=== PATIENT | female | born 1995 | race Caucasian/White ===

== ENCOUNTER 2017-03-28 21:23 | Emergency (ER) | payer OTHER | END 2017-03-28 22:03 | disposition left against medical advice (07) | LOC: ED 21:23 | DX: Z53.21 Procedure and treatment not carried out due to patient leaving prior to being seen by health care provider (principal) ==

== ENCOUNTER 2017-06-10 08:45 | Emergency (ER) | payer OTHER ==
[2017-06-10 09:25] LABS: BASOPHIL % 0.7 % (0-2); PLATELET COUNT 229 x10^3mcL (130-400); RED CELL DISTRIBUTION WIDTH 14.5 % (11.5-14.5)
[2017-06-10 09:40] LABS: CALCIUM 8.9 mg/dL (8.5-10.1); CARBON DIOXIDE 29.5 mmol/L (21-32); CHLORIDE SERUM 98 mmol/L (98-107); CREATININE SERUM 0.7 mg/dL (0.6-1.0); GFR1 > 60 mL/min; GLUCOSE SERUM 95 mg/dL (74-106); POTASSIUM SERUM 4.5 mmol/L (3.5-5.1); SODIUM SERUM 135 mmol/L (136-145)
[2017-06-10 09:45] LABS: ALBUMIN 4.5 g/dL (3.4-5.0); ALKALINE PHOSPHATASE 57 U/L (46-116); ALT/SGPT 23 U/L (14-59); AST/SGOT 18 U/L (15-37); BILIRUBIN TOTAL 0.3 mg/dL (0.20-1.00)
[2017-06-10 09:48] LABS: TOTAL PROTEIN, SERUM 8.4 g/dL (6.4-8.2)
[2017-06-10 11:09] VITALS: BP 101/63
== END 2017-06-10 11:09 | disposition home or self-care (01) ==
LOC: ED 08:45
PROVIDERS: Emergency Medicine
DX: F10.129 Alcohol abuse with intoxication, unspecified (principal)
CPT/HCPCS: G0480; J3411; J3475; J3490; J7030

== ENCOUNTER 2019-04-30 21:55 | Emergency (ER) | payer OTHER ==
[~2019-04-30] VITALS: Ht 160 cm; Wt 54.4 kg
[2019-04-30 22:13] VITALS: Ht 160 cm; Wt 54.4 kg
[2019-04-30 22:30] LABS: CALCIUM 9.6 mg/dL (8.5-10.1); CARBON DIOXIDE 18.1 mmol/L (21-32); CHLORIDE SERUM 103 mmol/L (98-107); CREATININE SERUM 0.9 mg/dL (0.6-1.0); GFR1 > 60 mL/min; GLUCOSE SERUM 102 mg/dL (74-106); POTASSIUM SERUM 3.8 mmol/L (3.5-5.1); SODIUM SERUM 143 mmol/L (136-145)
[2019-04-30 22:36] LABS: ALBUMIN 4.8 g/dL (3.4-5.0); ALKALINE PHOSPHATASE 69 U/L (46-116); ALT/SGPT 27 U/L (14-59); AST/SGOT 20 U/L (15-37); BASOPHIL % 0.3 % (0-2); BILIRUBIN TOTAL 0.33 mg/dL (0.20-1.00); PLATELET COUNT 307 x10^3mcL (130-400); RED CELL DISTRIBUTION WIDTH 14.3 % (11.5-14.5)
[2019-04-30 22:38] LABS: TOTAL PROTEIN, SERUM 8.6 g/dL (6.4-8.2)
[2019-04-30 23:24] LABS: UA SPECIFIC GRAVITY >=1.030 (1.005-1.035); microscopic required? YES; urine erythrocyte TRACE (NEGATIVE)
[2019-04-30 23:38] LABS: AMPHETAMINE QUAL UR NONE DETECTED (See below)
[2019-05-01 08:08] VITALS: BP 113/61
== END 2019-05-01 09:09 | disposition home or self-care (01) ==
LOC: ED 21:55
PROVIDERS: Specialist
DX: R45.851 Suicidal ideations (principal); F10.129 Alcohol abuse with intoxication, unspecified; F32.9 Major depressive disorder, single episode, unspecified; E23.2 Diabetes insipidus
CPT/HCPCS: G0480; J0696; J1630; J2405; J7030; J7060

== ENCOUNTER 2019-05-08 09:10 | Emergency (ER) | payer OTHER ==
[~2019-05-08] VITALS: Ht 162.6 cm; Wt 62.6 kg
[2019-05-08 09:21] VITALS: Ht 162.6 cm; Wt 62.6 kg
[2019-05-08 10:04] VITALS: BP 114/74
== END 2019-05-08 10:04 | disposition home or self-care (01) ==
LOC: ED 09:10
DX: R00.2 Palpitations (principal); F10.239 Alcohol dependence with withdrawal, unspecified; E23.2 Diabetes insipidus; Z98.890 Other specified postprocedural states

== ENCOUNTER 2019-05-09 19:32 | Emergency (ER) | payer OTHER ==
[~2019-05-09] VITALS: Ht 162.6 cm; Wt 58.5 kg
[2019-05-09 19:39] VITALS: Ht 162.6 cm; Wt 58.5 kg
[2019-05-09 20:38] LABS: BASOPHIL % 0.4 % (0-2); PLATELET COUNT 237 x10^3mcL (130-400)
[2019-05-09 20:39] LABS: RED CELL DISTRIBUTION WIDTH 14.7 % (11.5-14.5)
[2019-05-09 20:42] LABS: CALCIUM 8.6 mg/dL (8.5-10.1); CARBON DIOXIDE 22.9 mmol/L (21-32); CHLORIDE SERUM 110 mmol/L (98-107); CREATININE SERUM 0.9 mg/dL (0.6-1.0); GFR1 > 60 mL/min; GLUCOSE SERUM 102 mg/dL (74-106); POTASSIUM SERUM 3.8 mmol/L (3.5-5.1); SODIUM SERUM 148 mmol/L (136-145)
[2019-05-09 20:43] LABS: UA SPECIFIC GRAVITY <=1.005 (1.005-1.035); microscopic required? YES; urine erythrocyte 3+ (NEGATIVE)
[2019-05-09 20:46] LABS: AMPHETAMINE QUAL UR NONE DETECTED (See below)
[2019-05-09 20:46] LABS: ALBUMIN 4.7 g/dL (3.4-5.0); ALKALINE PHOSPHATASE 61 U/L (46-116); ALT/SGPT 37 U/L (14-59); AST/SGOT 36 U/L (15-37); BILIRUBIN TOTAL 0.37 mg/dL (0.20-1.00)
[2019-05-09 20:47] LABS: TOTAL PROTEIN, SERUM 8.3 g/dL (6.4-8.2)
--- NOTE | 2019-05-10 10:17 | NUR ---
[facility] still looking for placement for pt. [place] f/u with contracted facilities regarding placement/ potential openings. No beds at [facility] receiving facilities at this time.
[2019-05-10 10:30] VITALS: BP 107/57
== END 2019-05-10 13:15 | disposition home or self-care (01) ==
LOC: ED 19:32
PROVIDERS: Emergency Medicine
DX: F32.9 Major depressive disorder, single episode, unspecified (principal); F10.129 Alcohol abuse with intoxication, unspecified
CPT/HCPCS: 36415; G0480; J2597

== ENCOUNTER 2019-05-21 23:36 | Emergency (ER) | payer OTHER ==
[~2019-05-21] VITALS: Ht 162.6 cm; Wt 56.7 kg
[2019-05-22 00:40] LABS: BASOPHIL % 0.4 % (0-2); PLATELET COUNT 232 x10^3mcL (130-400); RED CELL DISTRIBUTION WIDTH 14.5 % (11.5-14.5)
[2019-05-22 00:45] LABS: CALCIUM 8.4 mg/dL (8.5-10.1); CHLORIDE SERUM 97 mmol/L (98-107); CREATININE SERUM 0.7 mg/dL (0.6-1.0); GFR1 > 60 mL/min; GLUCOSE SERUM 104 mg/dL (74-106); POTASSIUM SERUM 3.9 mmol/L (3.5-5.1); SODIUM SERUM 134 mmol/L (136-145)
[2019-05-22 00:50] LABS: ALBUMIN 3.9 g/dL (3.4-5.0); ALKALINE PHOSPHATASE 56 U/L (46-116); ALT/SGPT 16 U/L (14-59); AST/SGOT 24 U/L (15-37); TOTAL PROTEIN, SERUM 7.2 g/dL (6.4-8.2)
[2019-05-22 01:06] LABS: AMPHETAMINE QUAL UR NONE DETECTED (See below)
--- NOTE | 2019-05-22 07:37 | NUR ---
Recieved packet for patient will start to send out seeking placement. We will keep the staff informed of any progress. Thank you
--- NOTE | 2019-05-22 07:57 | NUR ---
Information sent to [facility]/ [facility]/ [facility]/ Emma Chavez/ Katlyn Freeman/ [facility]/ [facility]/ [facility]
--- NOTE | 2019-05-22 13:39 | NUR ---
Spoke with TJ in regards to acceptance of patient for placement at [address] 121 A under the care of Dr. Guidry phone number for nurse to nurse report is [phone] Thank you, we look forward to helping you
[2019-05-22 14:42] VITALS: BP 109/51
== END 2019-05-22 14:40 | disposition short-term general hospital (02) ==
LOC: ED 23:36
PROVIDERS: Emergency Medicine
DX: S11.81XA Laceration without foreign body of other specified part of neck, initial encounter (principal); R45.851 Suicidal ideations; F32.9 Major depressive disorder, single episode, unspecified; Z98.890 Other specified postprocedural states; W26.0XXA Contact with knife, initial encounter; Y93.89 Activity, other specified; Y92.89 Other specified places as the place of occurrence of the external cause; Y99.8 Other external cause status
CPT/HCPCS: 36415; 90715; G0480; J2001; J2597

== ENCOUNTER 2019-05-28 16:28 | Emergency (ER) | payer OTHER ==
[~2019-05-28] VITALS: Ht 162.6 cm; Wt 59.4 kg
[2019-05-28 16:48] VITALS: BP 123/77; Ht 162.6 cm; Wt 59.4 kg
== END 2019-05-28 18:47 | disposition home or self-care (01) ==
LOC: ED 16:28
DX: S11.91XD Laceration without foreign body of unspecified part of neck, subsequent encounter (principal); X58.XXXD Exposure to other specified factors, subsequent encounter

== ENCOUNTER 2020-01-08 01:07 | Emergency (ER) | payer MEDICAID ==
[~2020-01-08] VITALS: Ht 162.6 cm; Wt 54.4 kg
[2020-01-08 01:16] VITALS: Ht 162.6 cm; Wt 54.4 kg
[2020-01-08 01:45] LABS: BASOPHIL % 0.9 % (0-2); PLATELET COUNT 232 x10^3mcL (130-400); RED CELL DISTRIBUTION WIDTH 13.1 % (11.5-14.5)
[2020-01-08 01:53] LABS: CALCIUM 8.6 mg/dL (8.5-10.1); CARBON DIOXIDE 28.6 mmol/L (21-32); CHLORIDE SERUM 106 mmol/L (98-107); CREATININE SERUM 0.7 mg/dL (0.6-1.0); GFR1 > 60 mL/min; GLUCOSE SERUM 107 mg/dL (74-106); POTASSIUM SERUM 3.6 mmol/L (3.5-5.1); SODIUM SERUM 143 mmol/L (136-145)
[2020-01-08 01:59] LABS: ALBUMIN 4.2 g/dL (3.4-5.0); ALKALINE PHOSPHATASE 67 U/L (46-116); ALT/SGPT 22 U/L (14-59); AST/SGOT 17 U/L (15-37); BILIRUBIN TOTAL 0.19 mg/dL (0.20-1.00); TOTAL PROTEIN, SERUM 7.8 g/dL (6.4-8.2)
[2020-01-08 07:21] VITALS: BP 102/45
== END 2020-01-08 07:21 | disposition home or self-care (01) ==
LOC: ED 01:07
PROVIDERS: Emergency Medicine
DX: T51.91XA Toxic effect of unspecified alcohol, accidental (unintentional), initial encounter (principal); F10.129 Alcohol abuse with intoxication, unspecified; Z98.890 Other specified postprocedural states; Y92.89 Other specified places as the place of occurrence of the external cause; Y90.8 Blood alcohol level of 240 mg/100 ml or more
CPT/HCPCS: 36415; G0480

== ENCOUNTER 2020-07-12 17:43 | Emergency (ER) | payer OTHER ==
[~2020-07-12] VITALS: Ht 162.6 cm; Wt 56.7 kg
[2020-07-12 17:51] VITALS: Ht 162.6 cm; Wt 56.7 kg
[2020-07-12 18:37] LABS: BASOPHIL % 0.3 % (0-2); PLATELET COUNT 251 x10^3mcL (130-400); RED CELL DISTRIBUTION WIDTH 13.6 % (11.5-14.5)
[2020-07-12 18:45] LABS: CALCIUM 8.6 mg/dL (8.5-10.1); CARBON DIOXIDE 27.1 mmol/L (21-32); CHLORIDE SERUM 106 mmol/L (98-107); CREATININE SERUM 0.8 mg/dL (0.6-1.0); GFR1 > 60 mL/min; GLUCOSE SERUM 96 mg/dL (74-106); POTASSIUM SERUM 3.5 mmol/L (3.5-5.1); SODIUM SERUM 145 mmol/L (136-145)
[2020-07-12 18:50] LABS: ALBUMIN 4.4 g/dL (3.4-5.0); ALKALINE PHOSPHATASE 74 U/L (46-116); ALT/SGPT 123 U/L (14-59); AST/SGOT 103 U/L (15-37); BILIRUBIN TOTAL 0.54 mg/dL (0.20-1.00)
[2020-07-12 19:25] LABS: microscopic required? NO
[2020-07-12 19:31] LABS: UA SPECIFIC GRAVITY <=1.005 (1.005-1.035); urine erythrocyte NEGATIVE (NEGATIVE)
[2020-07-12 19:46] LABS: AMPHETAMINE QUAL UR NONE DETECTED (See below)
--- NOTE | 2020-07-13 20:25 | NUR ---
Called and spoke to Lena in ER. Patient has been accepted to [facility] [id number] [place], [place] [id number] Accepting Physicians Dr. Yolis Irwin Room - 142-B Nurse from [facility] will call your facility for report
[2020-07-13 22:24] VITALS: BP 119/89
== END 2020-07-13 22:15 ==
LOC: ED 17:43
PROVIDERS: Emergency Medicine
DX: F19.129 Other psychoactive substance abuse with intoxication, unspecified (principal); R00.0 Tachycardia, unspecified; R45.851 Suicidal ideations; Z98.890 Other specified postprocedural states; Z20.828 Contact with and (suspected) exposure to other viral communicable diseases
CPT/HCPCS: G0480; J2060; J2405; J7030; Q0163; U0003-CS